=== PATIENT | male | born 1965 | race Caucasian/White ===

== ENCOUNTER → 2016-07-24 | Outpatient (CLI) | payer OTHER | LOC: LAB 19:37 | DX: Z02.83 Encounter for blood-alcohol and blood-drug test (principal) | CPT/HCPCS: 36415 ==

== ENCOUNTER 2016-09-06 13:52 | Emergency (ER) | payer OTHER | END 2016-09-06 16:10 | disposition home or self-care (01) | LOC: ER1 13:52 | DX: S39.012A Strain of muscle, fascia and tendon of lower back, initial encounter (principal); G89.29 Other chronic pain; F17.210 Nicotine dependence, cigarettes, uncomplicated; X58.XXXA Exposure to other specified factors, initial encounter | CPT/HCPCS: 96372; 99283; J1885 ==

== ENCOUNTER 2020-07-02 12:01 | Emergency (ER) | payer OTHER ==
[~2020-07-02 12:01] MED LIST: AMOX TR-K CLV1 EAC4 PO; ANTI-ITCH28 GM TP; CLEOCIN HCL300 MG PO; DOXYCYCLINE HY100 M2 PO; FLEXERIL 10 MG10 MG PO; IBUPROFEN800 MG PO
== END 2020-07-02 15:00 | disposition home or self-care (01) ==
LOC: ER1 12:01
DX: T15.02XA Foreign body in cornea, left eye, initial encounter (principal); Z23 Encounter for immunization
CPT/HCPCS: 90471; 90714; 99283

== ENCOUNTER 2021-10-20 17:53 | Emergency (ER) | payer MEDICAID ==
[2021-10-20 18:47] LABS: HEMOGLOBIN 14.7 gm/dl (14.0-17.5); RED BLOOD COUNT 5.09 M/UL (4.20-5.50); WHITE BLOOD COUNT 11.1 K/UL (4.5-11.0)
[2021-10-20 19:13] LABS: BUN/CREATININE RATIO 21 (0-10)
[2021-10-20] MEDS ORDERED: AUGMENTIN XR 11 EACH PO (20:05)
== END 2021-10-20 20:27 | disposition home or self-care (01) ==
LOC: ER1 17:53
DX: L02.416 Cutaneous abscess of left lower limb (principal); E11.9 Type 2 diabetes mellitus without complications; F17.200 Nicotine dependence, unspecified, uncomplicated; Z89.012 Acquired absence of left thumb
CPT/HCPCS: 73560; 80053; 81001; 83605; 85025; 87040; 99283

== ENCOUNTER → 2021-11-30 | Outpatient (CLI) | payer OTHER ==
[~2021-11-30] MED LIST changes: +AUGMENTIN XR 11 EACH PO
== END ==
LOC: KOH-I 14:23
DX: M25.511 Pain in right shoulder (principal); R53.1 Weakness; M79.601 Pain in right arm; R12 Heartburn; E11.65 Type 2 diabetes mellitus with hyperglycemia; N40.1 Benign prostatic hyperplasia with lower urinary tract symptoms; M25.78 Osteophyte, vertebrae; M48.02 Spinal stenosis, cervical region; M19.011 Primary osteoarthritis, right shoulder
CPT/HCPCS: 72040; 73030